=== PATIENT | female | born 1990 | race Two or more races ===

== ENCOUNTER 2019-02-26 09:36 | Outpatient (CLI) | payer OTHER | END 2019-02-26 09:55 | disposition home or self-care (01) | LOC: LAB 09:36 | DX: Z34.02 Encounter for supervision of normal first pregnancy, second trimester (principal) ==

== ENCOUNTER 2019-05-01 09:07 | Outpatient (CLI) | payer OTHER | END 2019-05-01 09:17 | disposition home or self-care (01) | LOC: LAB 09:07 | DX: Z3A.24 24 weeks gestation of pregnancy (principal) ==

== ENCOUNTER 2019-06-03 10:15 | Outpatient (CLI) | payer OTHER | END 2019-06-03 15:00 | disposition home or self-care (01) | LOC: LAB 10:15 | DX: Z34.03 Encounter for supervision of normal first pregnancy, third trimester (principal) ==